=== PATIENT | male | born 1955 | race African-American/Black ===

== ENCOUNTER 2017-10-07 12:57 | Inpatient (IN) | payer OTHER, MEDICARE ==
[2017-10-07] MEDS ORDERED: ACETAMINOPHEN 325 MG TABLET PO ONE (13:42)
[2017-10-07] MEDS ORDERED: NORMAL SALINE 1000 ML 1,000 ML IV ONE (13:42)
[2017-10-07] MEDS ORDERED: AZITHROMYCIN 250 MG TABLET PO ONE (13:43)
--- NOTE | 2017-10-07 13:45 | ER Document Report ---
ED Medical Screen (RME) - General Chief Complaint: Flu Symptoms Stated Complaint: COUGH,CONGESTION,NAUSEA Time Seen by Provider: 10/07/17 13:42 Notes: fever, cough, cold, congestion TRAVEL OUTSIDE OF THE [place] IN LAST 30 DAYS: No - Related Data Allergies/Adverse Reactions: No Known Allergies Allergy (Unverified 10/07/17 12:58) Past Medical History - Social History Chew tobacco use (# tins/day): No Frequency of alcohol use: Social Drug Abuse: None - Past Medical History Cardiac Medical History: Reports: Hx Hypertension Pulmonary Medical History: Reports: Hx Asthma, Hx Bronchitis, Hx Pneumonia Endocrine Medical History: Reports: Hx Diabetes Mellitus Type 1, Hx Diabetes Mellitus Type 2 Renal/ Medical History: Denies: Hx Peritoneal Dialysis Physical Exam - Vital signs Vitals: Temp Pulse BP Pulse Ox 102.5 F H 117 H 158/78 H 90 L 10/07/17 13:01 10/07/17 13:01 10/07/17 13:01 10/07/17 13:01 Course - Vital Signs Vital signs: Temp Pulse Resp BP Pulse Ox 102.5 F H 117 H 158/78 H 90 L 10/07/17 13:01 10/07/17 13:01 10/07/17 13:01 10/07/17 13:01
[2017-10-07 14:36] LABS: VENOUS BLOOD BASE EXCESS 0.8 mmol/L; VENOUS BLOOD HCO3 25.9 mmol/L (20-32); VENOUS BLOOD PCO2 42.6 mmHg (35-63); VENOUS BLOOD PH 7.4 (7.30-7.42)
[2017-10-07 14:49] LABS: ALANINE AMINOTRANSFERASE 21 U/L (21-72); ALBUMIN 4.1 g/dL (3.5-5.0); ALKALINE PHOSPHATASE 109 U/L (38-126); ANION GAP 10 (5-19); ASPARTATE AMINO TRANSFERASE 30 U/L (17-59); BILIRUBIN,DIRECT 0.8 mg/dL (0.0-0.4); BILIRUBIN,TOTAL 1.4 mg/dL (0.2-1.3); BLOOD UREA NITROGEN 7 mg/dL (7-20); CALCIUM 9.8 mg/dL (8.4-10.2); CARBON DIOXIDE 27 mmol/L (22-30); CHLORIDE 95 mmol/L (98-107); GLUCOSE 291 mg/dL (75-110); POTASSIUM 4.2 mmol/L (3.6-5.0); SODIUM 131.9 mmol/L (137-145); TOTAL PROTEIN 8.5 g/dL (6.3-8.2)
[2017-10-07 15:14] LABS: HEMATOCRIT 45.1 % (37.9-51.0); HEMOGLOBIN 14.8 g/dL (13.5-17.0); MEAN CORPUSCULAR HEMOGLOBIN 28.9 pg (27.0-33.4); MEAN CORPUSCULAR HGB CONC 32.9 g/dL (32.0-36.0); MEAN CORPUSCULAR VOLUME 88 fl (80-97); PLATELET COUNT 156 10^3/uL (150-450); RED BLOOD COUNT 5.14 10^6/uL (4.35-5.55); WHITE BLOOD COUNT 25.1 10^3/uL (4.0-10.5)
--- NOTE | 2017-10-07 15:18 | RADIOLOGY REPORT (SQ) ---
EXAM DESCRIPTION: CHEST PA/LAT COMPLETED DATE/TIME: 10/07/2017 2:28 pm REASON FOR STUDY: cough/fever COMPARISON: None. EXAM PARAMETERS: NUMBER OF VIEWS: two views TECHNIQUE: Digital Frontal and Lateral radiographic views of the chest acquired. RADIATION DOSE: NA LIMITATIONS: none FINDINGS: LUNGS AND PLEURA: There is focal increased density in the left lung base which could repre sent atelectatic changes or minimal pneumonic infiltrate. Linear density is identified in the right lung base which could represent subsegmental atelectasis or scarring. Remaining lung banegas are gagan r. No pleural effusions are identified MEDIASTINUM AND HILAR STRUCTURES: No masses or contour abnormalities. HEART AND VASCULAR STRUCTURES: Heart normal size. No evidence for failure. BONES: No acute findings. HARDWARE: None in the chest. OTHER: No other significant finding. IMPRESSION: Bibasilar densities as noted above TECHNICAL DOCUMENTATION: JOB ID: [id number] [employer]- All Rights Reserved
[2017-10-07 15:23] LABS: APPEARANCE,URINE SLIGHTLY-CLOUDY; BILIRUBIN,URINE NEGATIVE (NEGATIVE); GLUCOSE, URINE 50 mg/dL (NEGATIVE); KETONES,URINE 20 mg/dL (NEGATIVE); LEUKOCYTE ESTERASE,URINE NEGATIVE (NEGATIVE); NITRITE,URINE NEGATIVE (NEGATIVE); PROTEIN,URINE 100 mg/dL (NEGATIVE); URINE SPECIFIC GRAVITY 1.017
[2017-10-07] MEDS: CEFTRIAXONE 2 GM/D5W RTU 2 GM/50 ML RTUPB IV SCH (15:24)
[2017-10-07 15:25] LABS: COLOR,URINE DARK YELLOW
[2017-10-07 15:39] LABS: ABSOLUTE LYMPHOCYTES# (MANUAL) 2.5 10^3/uL (0.5-4.7); ABSOLUTE MONOCYTES # (MANUAL) 1.3 10^3/uL (0.1-1.4); ABSOLUTE NEUTROPHILS# (MANUAL) 21.3 10^3/uL (1.7-8.2); BASOPHILS % (MANUAL) 0 % (0-2); EOSINOPHILS % (MANUAL) 0 % (0-6); LYMPHOCYTES % (MANUAL) 10 % (13-45); MONOCYTES % (MANUAL) 5 % (3-13); SEGMENTED NEUTROPHILS % (MAN) 85 % (42-78); TOTAL CELLS COUNTED 100; TOXIC GRANULATION SLIGHT
[2017-10-07 15:40] LABS: ANISOCYTOSIS SLIGHT; PLATELET COMMENT ADEQUATE
--- NOTE | 2017-10-07 16:00 | ER Document Report ---
ED Flu Like - General Chief Complaint: Flu Symptoms Stated Complaint: COUGH,CONGESTION,NAUSEA Time Seen by Provider: 10/07/17 13:42 Mode of Arrival: Ambulatory Information source: Patient TRAVEL OUTSIDE OF THE [place] IN LAST 30 DAYS: No - HPI Onset: Other - 2 d AGO Timing/Duration: Sudden CO exposure: No Associated symptoms: Productive cough - MUCOID, BLOOD-STREAKED Similar symptoms previously: Yes - NOT RECENT Recently seen / treated by doctor: No - Related Data Allergies/Adverse Reactions: No Known Allergies Allergy (Unverified 10/07/17 12:58) Past Medical History - General Information source: Patient - Social History Smoking Status: Current Every Day Smoker Chew tobacco use (# tins/day): No Frequency of alcohol use: Social Drug Abuse: None Lives with: Family Family History: None Patient has suicidal ideation: No Patient has homicidal ideation: No - Past Medical History Cardiac Medical History: Reports: Hx Hypertension Pulmonary Medical History: Reports: Hx Asthma, Hx Bronchitis, Hx Pneumonia Endocrine Medical History: Reports: Hx Diabetes Mellitus Type 1, Hx Diabetes Mellitus Type 2 Renal/ Medical History: Denies: Hx Peritoneal Dialysis Musculoskeltal Medical History: Reports Other - CHRONIC PAIN, ON METHADONE Review of Systems - Review of Systems Constitutional: Chills, Diaphoresis, Fever, Weakness EENT: No symptoms reported Cardiovascular: No symptoms reported Respiratory: See HPI Gastrointestinal: No symptoms reported Musculoskeletal: No symptoms reported Skin: No symptoms reported Neurological/Psychological: Headaches Physical Exam - Vital signs Vitals: Temp Pulse BP Pulse Ox 102.5 F H 117 H 158/78 H 90 L 10/07/17 13:01 10/07/17 13:01 10/07/17 13:01 10/07/17 13:01 Interpretation: Hypertensive, Tachycardic, Febrile. No: Tachypneic - General General appearance: Appears well, Alert In distress: None - HEENT Head: Normocephalic Eyes: Normal Conjunctiva: Normal Ears: Normal Nasal: Normal Mouth/Lips: Normal Mucous membranes: Normal Pharynx: Normal Neck: Normal, Supple - Respiratory Respiratory status: No respiratory distress Chest status: Other - SLIGHTLY LOOSE COUGH Breath sounds: Rales - BIBASILAR - Cardiovascular Rhythm: Regular, Tachycardia Heart sounds: Normal auscultation Murmur: No - Abdominal Inspection: Normal Distension: No distension - Back Back: Normal - Extremities General upper extremity: Normal inspection General lower extremity: Normal inspection. No: Tender, Edema - Neurological Neuro grossly intact: Yes Cognition: Normal Orientation: AAOx4 - Psychological Associated symptoms: Normal affect, Normal mood - Skin Skin Temperature: Hot Skin Moisture: Dry Skin Color: Normal Skin Turgor: Elastic Course - Vital Signs Vital signs: Temp Pulse Resp BP Pulse Ox 102.5 F H 98 20 158/78 H 97 10/07/17 13:01 10/08/17 00:30 10/08/17 00:30 10/07/17 13:01 10/08/17 00:30 - Laboratory Result Diagrams: 10/07/17 14:05 10/07/17 14:05 Laboratory results interpreted by me: 10/07/17 10/07/17 10/07/17 13:05 14:05 14:05 WBC 25.1 H RDW 15.0 H Seg Neuts % (Manual) 85 H Lymphocytes % (Manual) 10 L Abs Neuts (Manual) 21.3 H Sodium 131.9 L Chloride 95 L Glucose 291 H Total Bilirubin 1.4 H Direct Bilirubin 0.8 H Total Protein 8.5 H Urine Protein 100 H Urine Glucose (UA) 50 H Urine Ketones 20 H Urine Blood MODERATE H Urine Urobilinogen 4.0 H Discharge - Discharge Clinical Impression: Pneumonia Qualifiers: Pneumonia type: due to unspecified organism Laterality: bilateral Lung location : lower lobe of lung Qualified Code(s): J18.9 - Pneumonia, unspecified organism Condition: Fair Disposition: ADMITTED INPATIENT Admitting Provider: Hospitalist Unit Admitted: Telemetry
[2017-10-07] MEDS ORDERED: IPRATROPIUM/ALBUTEROL 0.5-2.5 MG/3 ML AMPUL NEB PRN (16:16)
[2017-10-07] MEDS ORDERED: ACETAMINOPHEN 325 MG TABLET PO PRN (16:16)
--- NOTE | 2017-10-07 17:06 | PDOC H&P ---
History of Present Illness Admission Date/PCP: 10/07/17 16:46 Patient complains of: Cough, fever and increasing shortness of breath History of Present Illness: SHANKAR KARIMI is a 61 year old -[place] male with past medical history of chronic pain syndrome on methadone; presents to [facility]'s emergency room this afternoon with complaints of cough, fever and increasing shortness of breath over the last 2 days. He states his temperature is up to 102.4 at home yesterday. He has had a productive cough, thick blood- tinged secretions . He noted increasing wheezing bilaterally over the last 24 hours. He is not taking anything [id number] for his symptoms. He denies any vomiting or abdominal pain. Denies any diarrhea or dysuria. He states he has not eaten or drank much in the last 2 days. He states he did not receive a flu shot this year. He denies any sick contacts at home. Past Medical History Cardiac Medical History: Reports: Hypertension Pulmonary Medical History: Reports: Asthma, Bronchitis, Pneumonia EENT Medical History: Reports: None Endocrine Medical History: Reports: Diabetes Mellitus Type 2 - Takes no medications Renal/ Medical History: Reports: None Malignancy Medical History: Reports: None Musculoskeltal Medical History: Reports: None Psychiatric Medical History: Reports: Tobacco Dependency Traumatic Medical History: Reports: None Hematology: Reports: None Infectious Medical History: Reports: None Past Surgical History Past Surgical History: Reports: None Social History Information Source: Patient Lives with: Alone Smoking Status: Current Every Day Smoker Cigarettes Packs Per Day: 30 Last Time Smoked: Yesterday Frequency of Alcohol Use: Occasional Hx Recreational Drug Use: No Hx Prescription Drug Abuse: No - He denies Family History Family History: CAD, DM Parental Family History Reviewed: Yes Children Family History Reviewed: Yes Sibling(s) Family History Reviewed.: Yes Medication/Allergy Home Medications: Methadone HCl [Methadone Oral Soln 1Mg/ml 30 ml Bottle] 68 mg PO DAILY 10/07/17 Allergies/Adverse Reactions: No Known Allergies Allergy (Unverified 10/07/17 12:58) Review of Systems Constitutional: PRESENT: anorexia, chills, fatigue, fever(s), headache(s), weakness Eyes: ABSENT: visual disturbances Ears: ABSENT: hearing changes Cardiovascular: PRESENT: dyspnea on exertion. ABSENT: chest pain, edema, orthropnea, palpitations Respiratory: PRESENT: cough, dyspnea, sputum - blood streaked white Gastrointestinal: ABSENT: abdominal pain, constipation, diarrhea, hematemesis, hematochezia, nausea, vomiting Genitourinary: ABSENT: dysuria, hematuria Musculoskeletal: ABSENT: joint swelling Integumentary: ABSENT: rash, wounds Neurological: ABSENT: abnormal gait, abnormal speech, confusion, dizziness, focal weakness, syncope Psychiatric: ABSENT: anxiety, depression, homidical ideation, suicidal ideation Endocrine: ABSENT: cold intolerance, heat intolerance, polydipsia, polyuria Hematologic/Lymphatic: ABSENT: easy bleeding, easy bruising Physical Exam Vital Signs: Temp Pulse Resp BP Pulse Ox 102.5 F H 117 H 158/78 H 90 L 10/07/17 13:01 10/07/17 13:01 10/07/17 13:01 10/07/17 13:01 General appearance: PRESENT: no acute distress, obese, well-developed, well- nourished Head exam: PRESENT: atraumatic, normocephalic Eye exam: PRESENT: conjunctiva pink, EOMI, PERRLA. ABSENT: scleral icterus Ear exam: PRESENT: normal external ear exam Mouth exam: PRESENT: moist, tongue midline Teeth exam: PRESENT: poor dentation Throat exam: PRESENT: post pharyngeal erythema Neck exam: ABSENT: carotid bruit, JVD, lymphadenopathy, thyromegaly Respiratory exam: PRESENT: rhonchi, symmetrical, unlabored, wheezes - bilateral expiratory wheezing. ABSENT: rales Cardiovascular exam: PRESENT: RRR. ABSENT: diastolic murmur, rubs, systolic murmur Pulses: PRESENT: normal carotid pulses Vascular exam: PRESENT: normal capillary refill GI/Abdominal exam: PRESENT: normal bowel sounds, soft. ABSENT: distended, guarding, mass, organolmegaly, rebound, tenderness Rectal exam: PRESENT: deferred Extremities exam: PRESENT: full ROM. ABSENT: calf tenderness, clubbing, pedal edema Neurological exam: PRESENT: alert, awake, oriented to person, oriented to place , oriented to time, oriented to situation, CN II-XII grossly intact. ABSENT: motor sensory deficit Psychiatric exam: PRESENT: appropriate affect, normal mood. ABSENT: homicidal ideation, suicidal ideation Skin exam: PRESENT: dry, intact, warm. ABSENT: cyanosis, rash Results Impressions: Chest X-Ray 10/07/17 13:42 IMPRESSION: Bibasilar densities as noted above Assessment & Plan - Diagnosis (1) Acute respiratory failure with hypoxia Is this a current diagnosis for this admission?: Yes Plan: Patient's oxygen saturations are 88% on room air. He has diffuse expiratory wheezing and rhonchi. Chest xray shows bilateral lower lobe infiltrates and he has a leucocytosis of 25k. Flu like symptoms began 2 days ago (4) Pneumonia Qualifiers: Pneumonia type: due to unspecified organism Laterality: bilateral Lung location: lower lobe of lung Qualified Code(s): J18.9 - Pneumonia, unspecified organism Is this a current diagnosis for this admission?: Yes Plan: Bilateral lower infiltrates on chest xray, most likely streptococcal from influenza. Will obtain blood and sputum cultures and monitor (5) Hyponatremia Is this a current diagnosis for this admission?: Yes Plan: Likely secondary to dehydration from poor intake and influenza. Will hydrate with IV fluids and monitor (6) Tobacco abuse Is this a current diagnosis for this admission?: Yes Plan: Counseled nicotine patch - Time Time Spent: 50 to 70 Minutes Critical Time spent with patient: 25-34 minutes Smoking Cessation Education: 3 to 10 minutes Medications reviewed and adjusted accordingly: Yes Anticipated discharge: Home
[2017-10-07] MEDS: OSELTAMIVIR PHOSPHATE 75 MG CAPSULE PO SCH (17:43)
[2017-10-07] MEDS ORDERED: NICOTINE 14 MG/24 HR PATCH.TD24 TD ONE (18:00)
[2017-10-07] MEDS: NORMAL SALINE 1000 ML 1,000 ML IV PRN (18:13)
[2017-10-07] MEDS ORDERED: INSULIN REG, HUMAN 100 UNIT/ML 3 ML VIAL (PYX) SUBCUT ONE (20:54)
[2017-10-07] MEDS: FAMOTIDINE 20 MG TABLET PO SCH (22:16)
[2017-10-07] MEDS: MELATONIN 5 MG TABLET PO SCH (22:17)
[2017-10-07] MEDS: METHYLPREDNISOLONE INJ 40 MG/1 ML SDV IV SCH (22:23)
[2017-10-08] MEDS: IPRATROPIUM/ALBUTEROL 0.5-2.5 MG/3 ML AMPUL NEB SCH ×3 (00:24→16:39)
[2017-10-08 05:07] LABS: HEMOGLOBIN 13.8 g/dL (13.5-17.0); MEAN CORPUSCULAR HGB CONC 32.9 g/dL (32.0-36.0); MEAN CORPUSCULAR VOLUME 88 fl (80-97); PLATELET COUNT 144 10^3/uL (150-450); RED BLOOD COUNT 4.77 10^6/uL (4.35-5.55); RED CELL DISTRIBUTION WIDTH 15.1 % (11.5-14.0); WHITE BLOOD COUNT 19.8 10^3/uL (4.0-10.5)
[2017-10-08 05:22] LABS: ALANINE AMINOTRANSFERASE 26 U/L (21-72); ALBUMIN 3.5 g/dL (3.5-5.0); ALKALINE PHOSPHATASE 96 U/L (38-126); ANION GAP 13 (5-19); ASPARTATE AMINO TRANSFERASE 21 U/L (17-59); BILIRUBIN,DIRECT 0.3 mg/dL (0.0-0.4); BILIRUBIN,TOTAL 0.5 mg/dL (0.2-1.3); BLOOD UREA NITROGEN 10 mg/dL (7-20); CALCIUM 9.2 mg/dL (8.4-10.2); CARBON DIOXIDE 22 mmol/L (22-30); CHLORIDE 101 mmol/L (98-107); GLUCOSE 300 mg/dL (75-110); POTASSIUM 4.8 mmol/L (3.6-5.0); SODIUM 135.5 mmol/L (137-145); TOTAL PROTEIN 6.8 g/dL (6.3-8.2)
[2017-10-08 05:30] LABS: ABSOLUTE LYMPHOCYTES# (MANUAL) 0.6 10^3/uL (0.5-4.7); ABSOLUTE NEUTROPHILS# (MANUAL) 19.2 10^3/uL (1.7-8.2); ANISOCYTOSIS SLIGHT; BASOPHILS % (MANUAL) 0 % (0-2); EOSINOPHILS % (MANUAL) 0 % (0-6); LYMPHOCYTES % (MANUAL) 3 % (13-45); MONOCYTES % (MANUAL) 0 % (3-13); PLATELET COMMENT DECREASED; SEGMENTED NEUTROPHILS % (MAN) 97 % (42-78); TOTAL CELLS COUNTED 100
[2017-10-08] MEDS: METHYLPREDNISOLONE INJ 40 MG/1 ML SDV IV SCH ×3 (05:33→22:05)
[2017-10-08] MEDS: CEFTRIAXONE 2 GM/D5W RTU 2 GM/50 ML RTUPB IV SCH (06:25)
[2017-10-08] MEDS ORDERED: GLUCAGON,HUMAN RECOMB 1 MG INJ IM PRN (08:48)
[2017-10-08] MEDS ORDERED: DEXTROSE 50%-WATER 25 GM/50 ML DISP.SYRIN IV PRN ×2 (08:48)
[2017-10-08] MEDS ORDERED: DEXTROSE 40% GEL 15 GM TUBE PO PRN ×2 (08:48)
--- NOTE | 2017-10-08 08:50 | EKG REPORT ---
SEVERITY:- OTHERWISE NORMAL ECG - SINUS TACHYCARDIA BORDERLINE RIGHT AXIS DEVIATION : Confirmed by: Ankur Redding 08-Oct-2017 08:49:07
[2017-10-08] MEDS: INSULIN LISPRO 100 UNIT/ML 3 ML VIAL SUBCUT PRN ×3 (09:12→22:05)
[2017-10-08] MEDS ORDERED: CEFTRIAXONE 2 GM/D5W RTU 2 GM/50 ML RTUPB IV SCH (10:00)
[2017-10-08] MEDS ORDERED: AZITHROMYCIN 500 MG in DEXTROSE 5%-WATER 250 ML IV SCH (10:00)
[2017-10-08] MEDS ORDERED: METHADONE HCL 1 MG/ML 30 ML BOTTLE PO SCH (10:00)
[2017-10-08] MEDS: FAMOTIDINE 20 MG TABLET PO SCH ×2 (10:45→22:05)
[2017-10-08] MEDS: OSELTAMIVIR PHOSPHATE 75 MG CAPSULE PO SCH ×2 (10:45→20:10)
[2017-10-08] MEDS: METHADONE HCL 10 MG TABLET PO SCH (10:45)
[2017-10-08] MEDS: NORMAL SALINE 1000 ML 1,000 ML IV PRN (10:53)
[2017-10-08] MEDS: ENOXAPARIN SODIUM INJ 40 MG/0.4 ML DISP.SYRIN SUBCUT SCH (11:25)
--- NOTE | 2017-10-08 12:14 | PDOC PROGRESS REPORT ---
Subjective Progress Note for:: 10/08/17 Subjective:: The patient is resting in his bed in the ED. He states that he is feeling better than when he came to the hospital. He does state however that he continues to have a cough and is coughing up quite a bit of sputum. He also has blood in his sputum as well. He does not think he has been running a fever this morning. He has had no shaking chills. No nausea vomiting or diarrhea. No abdominal pain. No dysuria, frequency or hematuria. Reason For Visit: PNEUMONIA,PROBABLE INFLUENZA Physical Exam Vital Signs: Temp Pulse Resp BP Pulse Ox 102.5 F H 98 14 158/78 H 94 10/07/17 13:01 10/08/17 00:30 10/08/17 11:00 10/07/17 13:01 10/08/17 11:00 Pulse Oximeter Continuous Start: 10/07/17 16: 17 Freq: RTQ4 Status: Active Document 10/08/17 00:30 SFL (Rec: 10/08/17 00:41 SFL [email or web address]) Pulse Oximetry Assessment Oxygen Saturation (92-100) 97 Oxygen Flow Rate (L/min) 2 Oxygen Delivery Method Nasal Cannula Equipment Usage Equipment Standby Continuous SpO2 Machine # x General appearance: PRESENT: no acute distress, well-developed, well-nourished Head exam: PRESENT: atraumatic, normocephalic Mouth exam: PRESENT: moist, tongue midline Neck exam: ABSENT: carotid bruit, JVD, lymphadenopathy, thyromegaly Respiratory exam: PRESENT: decreased breath sounds, rhonchi Cardiovascular exam: PRESENT: RRR. ABSENT: diastolic murmur, rubs, systolic murmur GI/Abdominal exam: PRESENT: normal bowel sounds, soft. ABSENT: distended, guarding, mass, organolmegaly, rebound, tenderness Rectal exam: PRESENT: deferred Extremities exam: PRESENT: full ROM. ABSENT: calf tenderness, clubbing, pedal edema Musculoskeletal exam: PRESENT: ambulatory Neurological exam: PRESENT: alert, awake, oriented to person, oriented to place , oriented to time, oriented to situation, CN II-XII grossly intact. ABSENT: motor sensory deficit Psychiatric exam: PRESENT: appropriate affect, normal mood. ABSENT: homicidal ideation, suicidal ideation Skin exam: PRESENT: dry, intact, warm. ABSENT: cyanosis, rash Results Laboratory Results: 10/08/17 04:45 10/08/17 04:45 10/08/17 10/08/17 04:45 04:45 WBC 19.8 H RBC 4.77 Hgb 13.8 Hct 42.0 MCV 88 MCH 29.0 MCHC 32.9 RDW 15.1 H Plt Count 144 L Seg Neutrophils % Not Reportable Lymphocytes % Not Reportable Monocytes % Not Reportable Eosinophils % Not Reportable Basophils % Not Reportable Absolute Neutrophils Not Reportable Absolute Lymphocytes Not Reportable Absolute Monocytes Not Reportable Absolute Eosinophils Not Reportable Absolute Basophils Not Reportable Sodium 135.5 L Potassium 4.8 Chloride 101 Carbon Dioxide 22 Anion Gap 13 BUN 10 Creatinine 0.48 L Est GFR ( Amer) > 60 Est GFR (Non-Af Amer) > 60 Glucose 300 H Calcium 9.2 Total Bilirubin 0.5 AST 21 ALT 26 Alkaline Phosphatase 96 Total Protein 6.8 Albumin 3.5 Impressions: Chest X-Ray 10/07/17 13:42 IMPRESSION: Bibasilar densities as noted above Assessment & Plan - Diagnosis (1) Acute respiratory failure with hypoxia Is this a current diagnosis for this admission?: Yes Plan: The patient's oxygen saturations are still on the low side on 2 L of oxygen. He was not oxygen dependent prior to this hospitalization. His respiratory failure is likely due to underlying pneumonia. I am obtaining a CT scan of the chest as he is having hemoptysis. He will continue aggressive breathing treatments and therapy as outlined below. (2) Pneumonia Qualifiers: Pneumonia type: due to unspecified organism Laterality: bilateral Lung location: lower lobe of lung Qualified Code(s): J18.9 - Pneumonia, unspecified organism Is this a current diagnosis for this admission?: Yes Plan: Yes concerns for gram negatives in the concerns for gram positives and atypicals. He will continue IV Zithromax and Rocephin. This is day #2 of treatment. I am going to get a CT scan of his chest for further evaluation. (3) Hemoptysis Is this a current diagnosis for this admission?: Yes Plan: The patient will get a CT scan today. He did show me a container and he was coughing up quite a bit of blood-tinged sputum. (4) Hyponatremia Is this a current diagnosis for this admission?: Yes Plan: Likely due to acute illness. Resolved improving (5) Diabetes Is this a current diagnosis for this admission?: Yes Plan: The patient reportedly has diet-controlled diabetes. His blood sugars are markedly uncontrolled due to IV steroids. I have started him on sliding scale insulin (6) Hematuria Is this a current diagnosis for this admission?: Yes Plan: This will need to be worked up as an outpatient (7) Long-term current use of methadone for opiate dependence Is this a current diagnosis for this admission?: Yes Plan: Continue his home regimen - Time Time Spent with patient: 25-34 minutes - Inpatient Certification Medical Necessity: Need for Nebulizer Therapy and Monitoring of Response, Need for IV Antibiotics, Other - The patient is hypoxic. He continues to require oxygen supplementation and he was not on oxygen prior to this hospitalization. He needs a CT scan of his chest to evaluate his hemoptysis. Timing of disposition will be determined by his clinical course
--- NOTE | 2017-10-08 12:56 | RADIOLOGY REPORT (SQ) ---
EXAM DESCRIPTION: CT CHEST WITH COMPLETED DATE/TIME: 10/08/2017 12:42 pm REASON FOR STUDY: pna, hypoxia, hemoptysis, smoker COMPARISON: None. TECHNIQUE: CT scan of the chest performed using helical scanning technique with dynamic intravenous contrast injection. Images reviewed with lung, soft tissue and bone windows. Reconstructed coronal and sagittal MPR images reviewed. All images stored on PACS. All CT scanners at this facility use dose modulation, iterative reconstruction, and/or weight based d osing when appropriate to reduce radiation dose to as low as reasonably achievable (ALARA). [facility]: Dose Right [facility]: CareDose [facility]: Dose Right [facility]: Teradose 4D [facility]: [id number] CONTRAST TYPE AND DOSE: contrast/concentration: Isovue 370.00 mg/ml; Total Contrast Delivered: 80.0 ml; Total Saline Delivered: 55.0 ml RENAL FUNCTION: GFR > 60. RADIATION DOSE: CT Rad equipment meets quality standard of care and radiation dose reduction techniq ues were employed. CTDIvol: 17.2 mGy. DLP: 705 mGy-cm. . LIMITATIONS: None. FINDINGS: LUNGS AND PLEURA: Segmental airspace disease in the left lower lobe with associated air br onchograms. No evidence of cavitation. No effusions. Right lung is clear. HILAR AND MEDIASTINAL STRUCTURES: Small AP window and subcarinal nodes measuring up to about 1 cm in short axis. HEART AND VASCULAR STRUCTURES: No aneurysm or dissection. No central pulmonary emboli. No pericardi al effusion. HARDWARE: None in the chest. UPPER ABDOMEN: No significant findings. Limited exam. THYROID AND OTHER SOFT TISSUES: No masses. No adenopathy. BONES: No significant finding. OTHER: No other significant finding. IMPRESSION: Left lower lobe pneumonia. TECHNICAL DOCUMENTATION: JOB ID: [id number] Quality ID # [id number]: Final reports with documentation of one or more dose reduction techniques (e.g., Au tomated exposure control, adjustment of the mA and/or kV according to patient size, use of iterative reconstruction technique) 2010 [employer]- All Rights Reserved
[2017-10-08] MEDS: MELATONIN 5 MG TABLET PO SCH (22:05)
[2017-10-08] MEDS ORDERED: INSULIN REG, HUMAN 100 UNIT/ML 3 ML VIAL (PYX) IV ONE (22:30)
[2017-10-09] MEDS: IPRATROPIUM/ALBUTEROL 0.5-2.5 MG/3 ML AMPUL NEB SCH ×3 (00:04→15:58)
[2017-10-09] MEDS: METHYLPREDNISOLONE INJ 40 MG/1 ML SDV IV SCH (05:16)
[2017-10-09 06:30] LABS: HEMATOCRIT 42.1 % (37.9-51.0); HEMOGLOBIN 13.9 g/dL (13.5-17.0); MEAN CORPUSCULAR VOLUME 88 fl (80-97); PLATELET COUNT 144 10^3/uL (150-450); RED BLOOD COUNT 4.79 10^6/uL (4.35-5.55); RED CELL DISTRIBUTION WIDTH 14.7 % (11.5-14.0); WHITE BLOOD COUNT 16.2 10^3/uL (4.0-10.5)
[2017-10-09 06:43] LABS: ANION GAP 9 (5-19); BLOOD UREA NITROGEN 14 mg/dL (7-20); CALCIUM 9.2 mg/dL (8.4-10.2); CARBON DIOXIDE 22 mmol/L (22-30); CHLORIDE 103 mmol/L (98-107); MAGNESIUM 2.4 mg/dL (1.6-2.3); POTASSIUM 4.7 mmol/L (3.6-5.0); SODIUM 134.2 mmol/L (137-145)
[2017-10-09 06:53] LABS: GLUCOSE 411 mg/dL (75-110)
[2017-10-09 07:16] LABS: ABSOLUTE LYMPHOCYTES# (MANUAL) 1.1 10^3/uL (0.5-4.7); ABSOLUTE MONOCYTES # (MANUAL) 0.2 10^3/uL (0.1-1.4); ABSOLUTE NEUTROPHILS# (MANUAL) 14.9 10^3/uL (1.7-8.2); BAND NEUTROPHILS % (MANUAL) 1 % (3-5); BASOPHILS % (MANUAL) 0 % (0-2); EOSINOPHILS % (MANUAL) 0 % (0-6); LYMPHOCYTES % (MANUAL) 6 % (13-45); MONOCYTES % (MANUAL) 1 % (3-13); SEGMENTED NEUTROPHILS % (MAN) 91 % (42-78); TOTAL CELLS COUNTED 100
[2017-10-09 07:17] LABS: PLATELET COMMENT DECREASED
[2017-10-09 07:18] LABS: RBC MORPHOLOGY COMMENT NORMO-CYTIC/CHROMIC
[2017-10-09] MEDS ORDERED: PREDNISONE 20 MG TABLET PO ONE (09:00)
[2017-10-09] MEDS: FAMOTIDINE 20 MG TABLET PO SCH ×2 (09:07→22:52)
[2017-10-09] MEDS: METHADONE HCL 10 MG TABLET PO SCH (09:08)
[2017-10-09] MEDS: LEVOFLOXACIN 750 MG/D5W RTU 750 MG/150 ML RTUPB IV SCH (09:09)
[2017-10-09] MEDS: ENOXAPARIN SODIUM INJ 40 MG/0.4 ML DISP.SYRIN SUBCUT SCH (09:17)
[2017-10-09] MEDS: INSULIN LISPRO 100 UNIT/ML 3 ML VIAL SUBCUT PRN ×4 (10:00→22:52)
[2017-10-09] MEDS ORDERED: CEFTRIAXONE SODIUM 1,000 MG in DEXTROSE 5%-WATER 100 ML IV SCH (10:00)
[2017-10-09] MEDS: OSELTAMIVIR PHOSPHATE 75 MG CAPSULE PO SCH ×2 (10:21→17:43)
--- NOTE | 2017-10-09 16:01 | PDOC PROGRESS REPORT ---
Subjective Progress Note for:: 10/09/17 Subjective:: The patient is resting in his bed and states he continues to improve. He is still requiring low-dose oxygen and I am hopeful that we can wean him off over the next 24 hours. Overall he states he is feeling much better than when he came into the hospital. No further fever or shaking chills. No chest pain. He still is coughing up sputum that has some streaks to it. He has had no nausea, vomiting or diarrhea. No abdominal pain. No dysuria. He is having urinary frequency due to hyperglycemia. We did review the results of his CT scan. He does have evidence of an underlying pneumonia but no other acute abnormalities Reason For Visit: PNEUMONIA,PROBABLE INFLUENZA Physical Exam Vital Signs: Temp Pulse Resp BP Pulse Ox 97.8 F 88 22 H 153/72 H 94 10/09/17 11:54 10/09/17 14:00 10/09/17 11:54 10/09/17 11:54 10/09/17 12:08 Pulse Oximeter Continuous Start: 10/07/17 16: 17 Freq: RTQ4 Status: Active Document 10/09/17 12:08 TPO (Rec: 10/09/17 12:09 TPO [email or web address]) Pulse Oximetry Assessment Oxygen Saturation (92-100) 94 Oxygen Flow Rate (L/min) 2 Oxygen Delivery Method Nasal Cannula Fraction of Inspired Oxygen (FIO2) 28 Equipment Usage Equipment in Use Continuous SpO2 Machine # 4 Intake & Output 10/08/17 10/09/17 10/10/17 06:59 06:59 06:59 Intake Total 2450 680 Output Total 1400 800 Balance 1050 -120 Weight 106 kg Head exam: PRESENT: atraumatic Mouth exam: PRESENT: moist, tongue midline Respiratory exam: PRESENT: clear to auscultation kita. ABSENT: rales, rhonchi, wheezes Cardiovascular exam: PRESENT: RRR. ABSENT: diastolic murmur, rubs, systolic murmur GI/Abdominal exam: PRESENT: normal bowel sounds, soft. ABSENT: distended, guarding, mass, organolmegaly, rebound, tenderness Rectal exam: PRESENT: deferred Extremities exam: PRESENT: full ROM. ABSENT: calf tenderness, clubbing, pedal edema Neurological exam: PRESENT: alert, awake, oriented to person, oriented to place , oriented to time, oriented to situation, CN II-XII grossly intact. ABSENT: motor sensory deficit Psychiatric exam: PRESENT: appropriate affect, normal mood. ABSENT: homicidal ideation, suicidal ideation Skin exam: PRESENT: dry, intact, warm. ABSENT: cyanosis, rash Results Laboratory Results: 10/09/17 06:10 10/09/17 06:10 10/09/17 10/09/17 06:10 06:10 WBC 16.2 H RBC 4.79 Hgb 13.9 Hct 42.1 MCV 88 MCH 29.0 MCHC 33.0 RDW 14.7 H Plt Count 144 L Seg Neutrophils % Not Reportable Lymphocytes % Not Reportable Monocytes % Not Reportable Eosinophils % Not Reportable Basophils % Not Reportable Absolute Neutrophils Not Reportable Absolute Lymphocytes Not Reportable Absolute Monocytes Not Reportable Absolute Eosinophils Not Reportable Absolute Basophils Not Reportable Sodium 134.2 L Potassium 4.7 Chloride 103 Carbon Dioxide 22 Anion Gap 9 BUN 14 Creatinine 0.43 L Est GFR ( Amer) > 60 Est GFR (Non-Af Amer) > 60 Glucose 411 H* Calcium 9.2 Magnesium 2.4 H Impressions: Chest X-Ray 10/07/17 13:42 IMPRESSION: Bibasilar densities as noted above Chest CT 10/08/17 00:00 IMPRESSION: Left lower lobe pneumonia. Assessment & Plan - Diagnosis (1) Acute respiratory failure with hypoxia Is this a current diagnosis for this admission?: Yes Plan: He is still requiring low-dose oxygen. We will have the nursing staff and respiratory therapist try to wean him off as the day goes on. His respiratory failure is due to an underlying pneumonia and influenza. (2) Influenza Is this a current diagnosis for this admission?: Yes Plan: Unfortunately we did not have the ability to test him for the flu. His presentation was highly suspicious. He will continue Tamiflu. (3) Pneumonia Qualifiers: Pneumonia type: due to unspecified organism Laterality: bilateral Lung location: lower lobe of lung Qualified Code(s): J18.9 - Pneumonia, unspecified organism Is this a current diagnosis for this admission?: Yes Plan: Concerns for gram positives and atypicals. He was changed to Levaquin yesterday. He is much improved today. This is day #2 of treatment with Levaquin. He did have 1 day of IV Rocephin and Zithromax. (4) Hemoptysis Is this a current diagnosis for this admission?: Yes Plan: CT scan of the chest did not reveal any acute issues other than pneumonia. He does have a 1 cm hilar node that is likely due to his underlying pneumonia. (5) Hyponatremia Is this a current diagnosis for this admission?: Yes Plan: Likely due to acute illness. His level is still a little low. He will have a chemistry panel drawn in the morning. (6) Diabetes Is this a current diagnosis for this admission?: Yes Plan: The patient reportedly has diet-controlled diabetes. His blood sugars are markedly uncontrolled due steroids. I have stopped all steroids at this point. I have increased his sliding scale coverage and we will give him an additional 10 units of Humalog right now. The patient has had issues with blood sugars for quite some time. I am going to start him on metformin 1000 mg twice daily as well. I believe he will need treatment at least in the short- term after he leaves the hospital. (7) Hematuria Is this a current diagnosis for this admission?: Yes Plan: This will need to be worked up as an outpatient (8) Long-term current use of methadone for opiate dependence Is this a current diagnosis for this admission?: Yes Plan: Continue his home regimen - Time Time Spent with patient: 15-24 minutes - Inpatient Certification Medical Necessity: Need for IV Antibiotics, Other - Inpatient hospitalization remains necessary. The patient is still hypoxic. He was not on oxygen prior to this hospitalization and I would like to wean him off prior to discharge. He should be able to come off of the oxygen over the next 24 hours and I am hopeful that he can possibly be discharged home tomorrow.
[2017-10-09] MEDS ORDERED: INSULIN LISPRO 100 UNIT/ML 3 ML VIAL SUBCUT ONE (16:30)
[2017-10-09] MEDS: METFORMIN HCL 500 MG TABLET PO SCH (17:42)
[2017-10-09] MEDS: NORMAL SALINE 1000 ML 1,000 ML IV PRN (20:23)
[2017-10-09] MEDS: MELATONIN 5 MG TABLET PO SCH (22:52)
[2017-10-10] MEDS: IPRATROPIUM/ALBUTEROL 0.5-2.5 MG/3 ML AMPUL NEB SCH ×3 (00:07→16:40)
[2017-10-10 06:20] LABS: ABSOLUTE BASOPHILS # (AUTO) 0.1 10^3/uL (0.0-0.2); ABSOLUTE MONOCYTES (AUTO) 1.1 10^3/uL (0.1-1.4); BASOPHILS % (AUTO) 0.5 % (0-2); HEMATOCRIT 40.7 % (37.9-51.0); HEMOGLOBIN 13.3 g/dL (13.5-17.0); LYMPHOCYTES % (AUTO) 10.2 % (13-45); MEAN CORPUSCULAR HEMOGLOBIN 28.6 pg (27.0-33.4); MEAN CORPUSCULAR HGB CONC 32.7 g/dL (32.0-36.0); MEAN CORPUSCULAR VOLUME 87 fl (80-97); MONOCYTES % (AUTO) 5.9 % (3-13); PLATELET COUNT 176 10^3/uL (150-450); RED BLOOD COUNT 4.67 10^6/uL (4.35-5.55); RED CELL DISTRIBUTION WIDTH 14.8 % (11.5-14.0); SEGMENTED NEUTROPHILS % (AUTO) 83.4 % (42-78); TOTAL CELLS COUNTED % (AUTO) 100 %; WHITE BLOOD COUNT 19.2 10^3/uL (4.0-10.5)
[2017-10-10 06:34] LABS: ANION GAP 7 (5-19); BLOOD UREA NITROGEN 13 mg/dL (7-20); CALCIUM 9.1 mg/dL (8.4-10.2); CARBON DIOXIDE 25 mmol/L (22-30); CHLORIDE 104 mmol/L (98-107); GLUCOSE 269 mg/dL (75-110); MAGNESIUM 2.4 mg/dL (1.6-2.3); POTASSIUM 4.6 mmol/L (3.6-5.0); SODIUM 136.2 mmol/L (137-145)
[2017-10-10] MEDS: METFORMIN HCL 500 MG TABLET PO SCH (07:40)
[2017-10-10] MEDS: INSULIN LISPRO 100 UNIT/ML 3 ML VIAL SUBCUT PRN (09:26)
[2017-10-10] MEDS: ENOXAPARIN SODIUM INJ 40 MG/0.4 ML DISP.SYRIN SUBCUT SCH (09:26)
[2017-10-10] MEDS: FAMOTIDINE 20 MG TABLET PO SCH (09:26)
[2017-10-10] MEDS: OSELTAMIVIR PHOSPHATE 75 MG CAPSULE PO SCH (09:26)
[2017-10-10] MEDS: METHADONE HCL 10 MG TABLET PO SCH (09:26)
[2017-10-10] MEDS: LEVOFLOXACIN 750 MG/D5W RTU 750 MG/150 ML RTUPB IV SCH (09:27)
[2017-10-10 12:08] VITALS: BP 149/79
--- NOTE | 2017-10-10 17:18 | PDOC DISCHARGE SUMMARY ---
General - Admit/Disc Date/PCP Admission Date/Primary Care Provider: 10/07/17 16:46 Discharge Date: 10/10/17 - Discharge Diagnosis (1) Acute respiratory failure with hypoxia Is this a current diagnosis for this admission?: Yes Summary: REsolved on room air (2) Influenza Is this a current diagnosis for this admission?: Yes Summary: Treated with tamiflu (3) Pneumonia Is this a current diagnosis for this admission?: Yes Summary: Strep pneumonia h. influenzae in the sputum (4) Hyponatremia Is this a current diagnosis for this admission?: Yes Summary: REsolved with IV hydration (5) Tobacco abuse Is this a current diagnosis for this admission?: Yes Summary: Counseled. He is interested in tobacco cessation - Additional Information Resuscitation Status: Full Code Discharge Diet: Diabetic Discharge Activity: Activity As Tolerated, Balance Activity w/Rest Prescriptions: Levofloxacin [Levaquin 750 mg Tablet] 750 mg PO DAILY #4 tablet Metformin HCl [Glucophage] 1,000 mg PO BID #60 tablet Home Medications: Methadone HCl [Methadone Oral Soln 1Mg/ml 30 ml Bottle] 68 mg PO DAILY 10/07/17 Acetaminophen [Tylenol 325 mg Tablet] 650 mg PO Q4HP PRN tablet 10/10/17 Levofloxacin [Levaquin 750 mg Tablet] 750 mg PO DAILY #4 tablet 10/10/17 Metformin HCl [Glucophage] 1,000 mg PO BID #60 tablet 10/10/17 History of Present Illness Patient complains of: Cough, fever and shortness of breath History of Present Illness: SHANKAR KARIMI is a 61 year old -[place] male with past medical history of chronic pain syndrome on methadone; presents to [facility]'s emergency room this afternoon with complaints of cough, fever and increasing shortness of breath over the last 2 days. He states his temperature is up to 102.4 at home yesterday. He has had a productive cough, thick blood- tinged secretions . He noted increasing wheezing bilaterally over the last 24 hours. He is not taking anything [id number] for his symptoms. He denies any vomiting or abdominal pain. Denies any diarrhea or dysuria. He states he has not eaten or drank much in the last 2 days. He states he did not receive a flu shot this year. He denies any sick contacts at home. Hospital Course Hospital Course: He was admitted to the medical floor and started on IV levaquin and tamiflu. Over the next 3 days his symptoms improved. He was able to be weaned off oxygen. Today he feels much improved. We have transitioned his IV antibiotics to oral. Vitals signs are stable. Physical Exam Vital Signs: Temp Pulse Resp BP Pulse Ox 97.7 F 97 18 149/79 H 94 10/10/17 15:41 10/10/17 15:41 10/10/17 15:41 10/10/17 15:41 10/10/17 15:41 Pulse Oximeter Continuous Start: 10/07/17 16: 17 Freq: RTQ4 Status: Complete Document 10/10/17 11:54 TPO (Rec: 10/10/17 11:54 TPO [email or web address]) Pulse Oximetry Assessment Oxygen Saturation (92-100) 95 Oxygen Delivery Method Room Air Fraction of Inspired Oxygen (FIO2) 21 Equipment Usage Equipment in Use Continuous SpO2 Machine # 4 Intake & Output 10/09/17 10/10/17 10/11/17 06:59 06:59 06:59 Intake Total 2450 1936 Output Total 1400 800 Balance 1050 1136 Weight 106 kg 106 kg General appearance: PRESENT: no acute distress, obese, well-developed, well- nourished Eye exam: PRESENT: conjunctiva pink, EOMI, PERRLA. ABSENT: scleral icterus Ear exam: PRESENT: normal external ear exam Mouth exam: PRESENT: moist, tongue midline Neck exam: ABSENT: carotid bruit, JVD, lymphadenopathy, thyromegaly Respiratory exam: PRESENT: crackles - left base, symmetrical, unlabored Cardiovascular exam: PRESENT: RRR. ABSENT: diastolic murmur, rubs, systolic murmur Pulses: PRESENT: normal dorsalis pedis pul Vascular exam: PRESENT: normal capillary refill GI/Abdominal exam: PRESENT: normal bowel sounds, soft. ABSENT: distended, guarding, mass, organolmegaly, rebound, tenderness Rectal exam: PRESENT: deferred Extremities exam: PRESENT: full ROM. ABSENT: calf tenderness, clubbing, pedal edema Musculoskeletal exam: PRESENT: ambulatory, full ROM Neurological exam: PRESENT: alert, awake, oriented to person, oriented to place , oriented to time, oriented to situation, CN II-XII grossly intact. ABSENT: motor sensory deficit Psychiatric exam: PRESENT: appropriate affect, normal mood. ABSENT: homicidal ideation, suicidal ideation Skin exam: PRESENT: dry, intact, warm. ABSENT: cyanosis, rash Results Laboratory Results: 10/10/17 04:59 10/10/17 04:59 10/10/17 10/10/17 04:59 04:59 WBC 19.2 H RBC 4.67 Hgb 13.3 L Hct 40.7 MCV 87 MCH 28.6 MCHC 32.7 RDW 14.8 H Plt Count 176 Seg Neutrophils % 83.4 H Lymphocytes % 10.2 L Monocytes % 5.9 Eosinophils % 0.0 Basophils % 0.5 Absolute Neutrophils 16.0 H Absolute Lymphocytes 2.0 Absolute Monocytes 1.1 Absolute Eosinophils 0.0 Absolute Basophils 0.1 Sodium 136.2 L Potassium 4.6 Chloride 104 Carbon Dioxide 25 Anion Gap 7 BUN 13 Creatinine 0.50 L Est GFR ( Amer) > 60 Est GFR (Non-Af Amer) > 60 Glucose 269 H Calcium 9.1 Magnesium 2.4 H 10/07/17 16:52 Sputum Gram Stain - Final 10/07/17 16:52 Sputum Sputum Culture - Final Streptococcus Pneumoniae Haemophilus Influenzae Normal [place] Absent Impressions: Chest X-Ray 10/07/17 13:42 IMPRESSION: Bibasilar densities as noted above Chest CT 10/08/17 00:00 IMPRESSION: Left lower lobe pneumonia. Qualifiers PATEINT BEING DISCHARGED WITH ANY OF THE FOLLOWING DIAGNOSIS?: No - Not applicable Plan Discharge Plan: Home with Time Spent: Less than 30 Minutes
[2017-10-11] MEDS ORDERED: LEVOFLOXACIN 750 MG TABLET PO SCH (10:00)
== END 2017-10-10 16:57 | disposition home or self-care (01) | DRG 193 ==
LOC: ER 12:57 → EH 16:46 → 4S 10-08 15:03
PROVIDERS: ADMIT Internal Medicine; ATTEND Internal Medicine
PROC: 3E0F73Z Introduction of Anti-inflammatory into Respiratory Tract, Via Natural or Artificial Opening (ICD-10-PCS; principal; 2017-10-07)
DX: J11.08 Influenza due to unidentified influenza virus with specified pneumonia (principal); J96.01 Acute respiratory failure with hypoxia; E87.1 Hypo-osmolality and hyponatremia; J13 Pneumonia due to Streptococcus pneumoniae; I10 Essential (primary) hypertension; F17.210 Nicotine dependence, cigarettes, uncomplicated; E86.0 Dehydration; T38.0X5A Adverse effect of glucocorticoids and synthetic analogues, initial encounter; E11.65 Type 2 diabetes mellitus with hyperglycemia; R31.9 Hematuria, unspecified; G89.4 Chronic pain syndrome; Z79.891 Long term (current) use of opiate analgesic; Z82.49 Family history of ischemic heart disease and other diseases of the circulatory system; Z83.3 Family history of diabetes mellitus
CPT/HCPCS: 36415; 71046; 71260; 80048; 80053; 81001; 82803; 82962; 83605; 83735; 85025; 87040; 87070; 87077; 87086; 87186; 87205; 93005; 93010; 94640; 94762; 94799; 96361; 96365; 99285; J0456; J0696; J1650; J1815; J1956; J2920; J3490; J7030; J7060; J7512; J7620

== ENCOUNTER → 2018-03-24 | Outpatient (CLI) | payer MEDICARE ==
--- NOTE | 2018-03-24 12:03 | RADIOLOGY REPORT (SQ) ---
EXAM DESCRIPTION: CT LUNG CANCER SCREENING COMPLETED DATE/TIME: 03/24/2018 11:14 am REASON FOR STUDY: PERSONAL HX OF NICOTINE DEPENDENCE (Z87.891) Z87.891 PERSONAL HISTORY OF NICOTINE DEPENDENCE Has the patient had a Chest CT scan within the past year? Was the patient offered tobacco cessation counseling? Was the patient engaged in shared decision making for this test? Does the patient have signs or symptoms of Lung Cancer? Is the patient a smoker? How many packs per year? How many years since quitting smoking? Patients age: COMPARISON: 10/08/2017. TECHNIQUE: Low Dose CT scan performed of the chest without intravenous contrast for purposes of scre ening for lung cancer. Images reviewed with lung, soft tissue and bone windows. Reconstructed coron al and sagittal MPR images reviewed. All images stored on PACS. All CT scanners at this facility use dose modulation, iterative reconstruction, and/or weight based d osing when appropriate to reduce radiation dose to as low as reasonably achievable (ALARA). [facility]: Dose Right [facility]: CareDose [facility]: Dose Right [facility]: Teradose 4D [facility]: Experience Headphones RADIATION DOSE: mGy. . LIMITATIONS: No technical limitations. FINDINGS: LUNG NODULES: Irregular nodule in the right lower lobe, measuring 10 x 20 mm, (Series 3, image 152). Faint 8 mm nodule in the posteromedial right lower lobe (Series 3, image 176). REMAINING LUNGS AND PLEURA: No pleural effusions or calcifications. No pneumothorax. Emphysemat ous changes. Scarring in the lung bases. Bronchiectasis in the lower lobes. HILAR AND MEDIASTINAL STRUCTURES: No identified masses. No abnormal nodes. HEART AND VASCULAR STRUCTURES: No aortic aneurysm. No pericardial effusion. No cardiac devices. CORONARY ARTERY CALCIFICATIONS: Mild to moderate calcifications. UPPER ABDOMEN, THYROID, BONES, OTHER SOFT TISSUES: No significant findings. IMPRESSION: SUSPICIOUS FINDINGS IN THE LUNGS. NO OTHER CLINICALLY SIGNIFICANT/POTENTIALLY CLINICALLY SIGNIFICANT FINDINGS LUNGRADS: LUNGRADS: 4B SUSPICIOUS; FINDINGS FOR WHICH ADDITIONAL DIAGNOSTIC TESTING AND/OR TISSUE SA MPLING IS RECOMMENDED. THE 10 X 20 MM NODULE IN THE RIGHT LOWER LOBE HAS A CONFIGURATION WHICH COULD BE CONSISTENT WITH MUCO US PLUGGING. HOWEVER, SOLID LESION IS IN THE DIFFERENTIAL AND WOULD RECOMMEND PET SCAN FOR FURTHER E VALUATION. MODIFIER: NONE. RECOMMENDATION: Chest CT with or without contrast, PET/CT, and/or tissue sampling depending on the p robability or malignancy and comorbidities. PET/CT may be used when there is a ? 8 mm solid componen t. COMMENT: CRITERIA: Solid nodule(s): ? 15 mm OR new or growing and ? 8 mm. Part solid nodule(s): A solid component ? 8 mm OR a new or growing ? 4 mm solid component. TECHNICAL DOCUMENTATION: JOB ID: [id number] Quality ID # [id number]: Final reports with documentation of one or more dose reduction techniques (e.g., Au tomated exposure control, adjustment of the mA and/or kV according to patient size, use of iterative reconstruction technique) 2010 [facility] Reading location - IP/workstation name: [email or web address]
== END ==
LOC: RAD 10:54
PROVIDERS: ATTEND Internal Medicine
DX: Z12.2 Encounter for screening for malignant neoplasm of respiratory organs (principal); Z87.891 Personal history of nicotine dependence; R91.1 Solitary pulmonary nodule; J47.9 Bronchiectasis, uncomplicated; I25.10 Atherosclerotic heart disease of native coronary artery without angina pectoris
CPT/HCPCS: G0297

== ENCOUNTER → 2018-04-04 | Outpatient (CLI) | payer MEDICARE ==
--- NOTE | 2018-04-05 09:10 | RADIOLOGY REPORT (SQ) ---
EXAM DESCRIPTION: PET CT SKULL/THIGH COMPLETED DATE/TIME: 04/04/2018 7:35 pm REASON FOR STUDY: ABNORMAL FINDINGS OF LUNG FIELD R91.8 OTHER NONSPECIFIC ABNORMAL FINDING OF LUNG FIELD COMPARISON: None. Correlation: CT lung screening 03/24/2018. RADIONUCLIDE AND DOSE: 11.6 mCi F18 FDG The route of agent administration: Intravenous FASTING BLOOD SUGAR: 103 mg/dl CONTRAST TYPE AND DOSE: No CT contrast given. TECHNIQUE: Blood glucose level was verified. Above dose of FDG was injected intravenously. 2-D seg mented attenuation correction images were obtained from the base of the skull to the midthighs. Nonc ontrast CT images were obtained for attenuation correction and fusion with emission images. CT image s were performed without oral or intravenous contrast and are not sensitive for parenchymal lesions. A series of overlapping emission PET images were obtained. Images reviewed and manipulated at [facility] work station by the radiologist. Images stored on PACS. LIMITATIONS: None. FINDINGS: HEAD AND NECK: No areas of abnormal metabolic activity in the soft tissues of the head and neck. CHEST: No areas of abnormal metabolic activity in the chest. ABDOMEN AND PELVIS: No areas of abnormal metabolic activity in the abdomen or pelvis. Expected physi ologic activity is present in the genitourinary system and bowel. PROXIMAL LOWER EXTREMITIES: No areas of abnormal metabolic activity in the soft tissues of the lower extremities. BONES: No abnormal metabolic activity in the visualized skeleton. ADDITIONAL CT FINDINGS: Cholelithiasis. Gynecomastia. OTHER: No other significant findings. IMPRESSION: Non hypermetabolic right lower lobe nodule. Continue annual CT lung screening. TECHNICAL DOCUMENTATION: JOB ID: [id number] [employer]- All Rights Reserved Reading location - IP/workstation name: [email or web address]
== END ==
LOC: RAD 16:28
PROVIDERS: ATTEND Internal Medicine
DX: R91.8 Other nonspecific abnormal finding of lung field (principal)
CPT/HCPCS: 78815; A9552